=== PATIENT | male | born 1975 | race Caucasian/White ===

== ENCOUNTER 2022-07-13 10:53 | Emergency (ER) | payer BC, SELFPAY ==
[2022-07-13 10:56] VITALS: BP 130/80; PULSE 75; RESP 18; TEMP 35.9; O2SAT 98
[2022-07-13 11:02] VITALS: BMI 33.2
--- NOTE | 2022-07-13 11:24 | EX.ED.GUMALE ---
HPI History of Present Illness Chief Complaint: Flank Pain Narrative Narrative: 47-year-old male presenting with right flank and right lower abdominal pain. He states that started acutely about an hour ago. This was after he defecated. He states he is otherwise well prior to this. He now notes he has tried to urinate 4 times in this last hour and has not been able to get a significant urine stream. No dysuria or hematuria. He states he had a kidney stone in the past about 20 years ago. No fevers, chills, myalgias. Patient does admit to nausea/vomiting. PFSH PFSH Medical History Diabetes Kidney stones Home Medications ciprofloxacin HCl 500 mg tablet (Cipro) 500 mg PO BID #14 tabs 07/13/22 [Rx Last Taken Unknown] naproxen 500 mg tablet (Naprosyn) 500 mg PO BID PRN pain #20 tabs 07/13/22 [Rx Last Taken Unknown] ondansetron 4 mg disintegrating tablet 4 mg PO Q8H PRN PRN Nausea #14 tabs 07/13/22 [Rx Last Taken Unknown] Allergy/AdvReac Type Severity Reaction Status Date / Time No Known Allergies Allergy Verified 07/13/22 10:55 Social History Smoking Status: Current every day smoker tobacco type: cigarettes ROS ROS ED Constitutional Constitutional ED: Denies chills, fever(s) or sweats Eyes Eyes: Denies blurry vision or change in vision ENT ENT ED: Denies ear pain or sore throat Cardiovascular Cardiovascular: Denies chest pain, palpitations or racing heartbeat Respiratory/Chest Respiratory/Chest: Denies cough, dyspnea or sputum Gastrointestinal Gastrointestinal: Reports abdominal pain, nausea and vomiting; Denies constipation or diarrhea Genitourinary Genitourinary ED: Denies dysuria, hematuria or urinary frequency Musculoskeletal Musculoskeletal: Reports back pain; Denies arthralgias, myalgias or neck pain Integumentary Denies abscess, Abrasions or rash Neurologic Neurologic: Denies headache(s), paresthesias or weakness Psychiatric Psychiatric: Denies anxiety, depression, suicidal ideation or suicidal thoughts Endocrine Endocrinology: Denies polydipsia or polyuria EXAM Physical Exam Const Vital Signs: 07/13/22 10:56 02/22/23 13:53 Temperature 96.6 F L Temperature Source Temporal Pulse Rate 75 75 Respiratory Rate 18 16 Blood Pressure 130/80 H 126/69 H Blood Pressure Mean 96 88 Pulse Ox 98 94 Oxygen Delivery Method Room Air Room Air General Appearance ED: Negative for pallor HEENT Reports normocephalic, head/scalp atraumatic and moist mucous membranes Eyes PERRL and EOMs intact bilaterally Neck no lymphadenopathy and supple Chest Wall inspection of chest normal and palpation of chest normal Resp normal respiratory effort and clear to auscultation bilaterally Auscultation: Negative for rales, rhonchi or wheezes Cardio regular rate and regular rhythm GI Palpation: soft and tender RLQ Narrative: Deferred Bladder / Kidney Exam: CVA tenderness Back/Spine General Back: CVA tenderness right Cervical Spine: Negative for cervical spine tenderness Extremity normal to inspection General Extremety ED: Negative for edema or tenderness General Extremity: Negative for edema Neuro oriented x3 and CN's II-XII intact bilaterally Sensorium / Orientation: alert Motor Exam: strength 5/5 throughout Psych mental status grossly normal Attitude: No agitated Skin no rashes or lesions noted and no wounds General Skin Exam: Negative for jaundice or pallor MDM MDM MDM Narrative Medical decision making narrative: Patient with history of kidney stone presenting with right-sided flank pain. He does have associated nausea/vomiting as well as sweating. Patient medicated with morphine, Zofran. Patient given a liter normal saline. appendicitis, diverticulitis, kidney stone small bowel obstruction. Currently with his presentation I think he is most likely a kidney stone. Urinalysis obtained to assess for hematuria and evidence of infection. CBC to assess white blood count, differential. BMP to assess renal function electrolytes. CT the abdomen pelvis was obtained without contrast shows concern for pyelonephrosis versus pyelonephritis with inflammatory stranding around right kidney. Although the urinalysis is negative the patient still having some flank pain. I spoke with Dr. Zelaya who recommended treating it as a pyelonephritis. He recommended ciprofloxacin. Patient was given first dose in the ED and given a prescription for this. He is also given prescription for Naprosyn and Zofran. Follow-up with Dr. Zelaya. Return precautions discussed. Impression: 1. Right-sided pyelonephritis 2. Right flank pain 3. leukocytosis Lab Data Attestation: I reviewed the patient's lab results. Labs: Laboratory Results - last 24 hr 07/13/22 07/13/22 07/13/22 11:10 11:10 11:20 WBC 14.0 H RBC 5.27 Hgb 15.4 Hct 45.3 MCV 86.0 MCH 29.2 MCHC 34.0 RDW Std Deviation 40.6 RDW Coeff of Rosanne 13.0 Plt Count 310 MPV 10.8 Immature Gran % (Auto) 0.500 Neut % (Auto) 48.8 Lymph % (Auto) 40.3 Bryan % (Auto) 6.9 Eos % (Auto) 2.6 Baso % (Auto) 0.9 Absolute Neuts (auto) 6.8 Absolute Lymphs (auto) 5.62 H Nucleated RBC % 0 Atypical Lymphocytes 2+ Reactive Lymphocytes RARE Sodium 138 Potassium 3.9 Chloride 104 Carbon Dioxide 25.0 Anion Gap 9 BUN 16 Creatinine 1.09 Estim Creat Clear Calc 93.93 Est GFR (MDRD) Af Amer 94 Est GFR (MDRD) Non-Af 78 BUN/Creatinine Ratio 14.7 Glucose 191 H Calcium 10.1 Total Bilirubin 1.00 AST 19 ALT 48 Alkaline Phosphatase 83 Total Protein 8.3 H Albumin 4.5 Globulin 3.8 Albumin/Globulin Ratio 1.2 Urine Color Yellow Urine Clarity Clear Urine pH 5.0 Ur Specific [place] 1.025 Urine Protein 30 H Urine Glucose (UA) 50 H Urine Ketones 5 H Urine Occult Blood 250 H Urine Nitrite Negative Urine Bilirubin Negative Urine Urobilinogen Normal Ur Leukocyte Esterase 25 H Urine RBC 50-100 SEEN Urine WBC 0 SEEN Ur Squamous Epith Cells 0 SEEN Urine Bacteria 0 SEEN Urine Mucus 0 SEEN Radiography Diagnostic Testing: Clinical Impression(s) from Imaging Studies Abdomen/Pelvis CT 07/13/22 12:09 IMPRESSION: Mild perinephric inflammatory change medial to midpole right kidney extending adjacent to the right renal pelvis. Question pyelonephrosis/pial nephritis. No evidence of obstructive uropathy. Bilateral neural hernias right larger than left. Degenerative changes lower lumbar spine. Electronically Signed: Donovan Zamora MD, MARTY at 12:33 EST Reading Location ID and State: [facility] / [place] Tel , Service support , Discharge Plan Triage Chief Complaint: Flank Pain Other Complaint: Abd Pain Nausea/Vomiting ED Provider: Walter Simon Dx/Rx/DC Orders Instructions: ED Hematuria, ED Pyelonephritis, Male (Adult) Prescriptions: New ondansetron 4 mg tablet,disintegrating 4 mg PO Q8H PRN PRN (Reason: Nausea) Qty: 14 0RF naproxen [Naprosyn] 500 mg tablet 500 mg PO BID PRN (Reason: pain) Qty: 20 0RF ciprofloxacin HCl [Cipro] 500 mg tablet 500 mg PO BID Qty: 14 0RF Stand Alone Forms: ED Work / School Excuse Primary Care Provider: Finn Solis MD Referrals: Genaro Zelaya MD [Med Staff - Active Staff] - 3-5 Days Care Physician,No Primary [Non-Staff] - Disposition Disposition: Home, Self Care Discharge Date/Time: 07/13/22 15:25
[2022-07-13 11:28] LABS: Absolute Lymphocyte Count 5.62 X10^3/uL (0.83-4.51); Absolute Neutrophil Count 6.8 X10^3/uL (2.0-7.7); Basophil# 0.12 X10^3/uL; Basophil% 0.9 % (0-1); Eosinophil# 0.36 X10^3/uL; Eosinophils% 2.6 % (0-5); Hematocrit 45.3 % (40-54); Hemoglobin 15.4 g/dL (13.0-16.5); Lymphocyte # 5.62 X10^3/ul (0.83-4.51); Lymphocyte % 40.3 % (19-41); Mean Corpuscular Hgb 29.2 pg (27.0-32.0); Mean Platelet Vol. 10.8 fl (6.2-12.0); Monocyte# 0.97 X10^3/uL; Monocyte% 6.9 % (0-10); NRBC Flagged by Analyzer 0 % (0-5); Neutrophil # 6.82 X10^3/uL (2.7-7.7); Neutrophil % 48.8 % (47-70); POSITIVE DIFFERENTIAL YES; POSITIVE MORPHOLOGY YES; Platelet Count 310 K/mm3 (150-450); RBC Distribution Width SD 40.6 fl (35.1-43.9); Red Blood Count 5.27 M/mm3 (4.6-6.2)
[2022-07-13] MEDS: 0.9% Normal Saline 1,000 ML 999 ML IV (11:29)
[2022-07-13 11:30] LABS: Bacteria 0 SEEN /hpf (None Seen); Mucous, Urine 0 SEEN /hpf (<or=2+); Squamous Epithelial Cells - UA 0 SEEN /hpf (0-5); White Blood Cells 0 SEEN /hpf (0-5)
[2022-07-13 11:30] LABS: Differential Indicated SCAN CRITERIA MET
[2022-07-13] MEDS: Ondansetron 4 MG/2 ML Vial IV (11:30)
[2022-07-13] MEDS: Morphine 4 MG/ML Syringe IV (11:30)
[2022-07-13 11:38] LABS: Color, Urine Yellow (Yellow); Glucose, Dipstick 50 mg/dl (Normal); Ketone-Dipstick 5 mg/dl (Negative); Leukocyte Esterase-Dipstick 25 /ul (Negative); Nitrite-Dipstick Negative (Negative); Occult Blood-Urine 250 /ul (Negative); Protein-Dipstick 30 mg/dl (Negative); Specific Gravity, Urine 1.025 (1.002-1.030); Urine Bilirubin Dipstick Negative (Negative); Urine Clarity Clear (Clear); Urine Urobilinogen Normal (Normal)
[2022-07-13 11:38] LABS: ALB/GLOB Ratio 1.2 RATIO (0.9-2.4); AST(SGOT) 19 U/L (15-37); Alanine Aminotransfer ALT/SGPT 48 U/L (16-61); Albumin, Serum 4.5 g/dL (3.2-5.0); Alkaline Phosphatase 83 U/L (45-117); Anion Gap 9 (5-15); BUN 16 mg/dL (7-18); BUN/Creat Ratio 14.7 RATIO (10-20); Calcium,Total 10.1 mg/dL (8.5-10.1); Chloride 104 mmol/L (98-107); Creatinine, Serum 1.09 mg/dL (0.70-1.30); EST Glomerular Filtration Rate 78 mL/min (>60); Est Glom Filt Rate - Afr Amer 94 mL/min (>60); Estimated Creatinine Clearance 93.93 ml/min; Globulin 3.8 g/dL (2.2-4.2); Glucose 191 mg/dL (74-106); Potassium 3.9 mmol/L (3.5-5.1); Protein, Total 8.3 g/dL (6.4-8.2); Sodium Level 138 mmol/L (136-145)
[2022-07-13 11:49] LABS: Red Blood Cells-Urine 50-100 SEEN /hpf (0-5)
[2022-07-13 12:00] LABS: Reactive Lymphocyte RARE
[2022-07-13 12:01] LABS: Atypical Lymphocyte 2+ %
--- NOTE | 2022-07-13 12:09 | CT_ITS ---
INDICATION: Right flank pain EXAMINATION: CT ABDOMEN AND PELVIS WITHOUT CONTRAST - CT Abdomen And Pelvis W/O Contrast Injection TECHNIQUE: Helically acquired images were obtained of the abdomen and pelvis without oral or IV contrast. A radiation dose optimization technique was used for this scan. IV Contrast dosage and agent: None. Oral contrast: None. COMPARISON: None. FINDINGS: LOWER CHEST: Mild fibrosis posterior basilar segment right lower lobe. No cardiomegaly or pericardial effusion. LIVER: Fatty infiltration. No focal mass. GALLBLADDER AND BILIARY TREE: No calcified gallstones. No gallbladder distension or wall edema. No intra- or extrahepatic biliary ductal dilation. PANCREAS: No focal cystic or solid mass. SPLEEN: Normal size without focal cystic or solid mass. ADRENAL GLANDS: No nodules. KIDNEYS AND URETERS: Normal renal size and position. No hydronephrosis. There is mild perinephric stranding adjacent to the right renal pelvis and medial aspect of the right lower pole. PERITONEUM: No ascites or free air. No other fluid collection. BOWEL: No evidence of acute appendicitis. No stomach or bowel distension. No focal inflammatory change. LYMPH NODES: No enlarged mesenteric or retroperitoneal lymph nodes. VESSELS: Aorta is non-dilated. URINARY BLADDER: Unremarkable. REPRODUCTIVE ORGANS: No pelvic masses. ABDOMINAL WALL: Right inguinal hernia 4.35 cm transverse. Left inguinal hernia 3.18 cm transverse. BONES: No lytic or blastic abnormality. Moderate degenerative disc disease L5-S1. Mild degenerative disc disease remainder of the lumbar spine. CT/Abdomen/Pelvis without Cont IMPRESSION: Mild perinephric inflammatory change medial to midpole right kidney extending adjacent to the right renal pelvis. Question pyelonephrosis/pial nephritis. No evidence of obstructive uropathy. Bilateral neural hernias right larger than left. Degenerative changes lower lumbar spine. Electronically Signed: Donovan Zamora MD, MARTY at 12:33 EST ,
[2022-07-13 13:53] VITALS: BP 126/69; PULSE 75; RESP 16; O2SAT 94
== END 2022-07-13 15:25 | disposition home or self-care (01) ==
PROVIDERS: Emergency Provider Student in an Organized Health Care Education/Training Program; Visit Provider Student in an Organized Health Care Education/Training Program
DX: N12 Tubulo-interstitial nephritis, not specified as acute or chronic (principal); E11.9 Type 2 diabetes mellitus without complications; D72.829 Elevated white blood cell count, unspecified; F17.210 Nicotine dependence, cigarettes, uncomplicated; Z87.442 Personal history of urinary calculi
CPT/HCPCS: 74176; 80053; 81001; 85025; 87086; 96361; 96374; 96375; 99285; J2405